=== PATIENT | female | born 1980 | race Caucasian/White ===

== ENCOUNTER 2017-10-09 10:16 | Emergency (ER) | payer OTHER ==
[~2017-10-09] VITALS: Ht 152.4 cm; Wt 104.8 kg
[~2017-10-09 10:16] MED LIST: BUSPIRONE HCL10 MG; CITRANATAL B-C1 EAC1; DOLOGEN CAPLET1 TAB; MEDROLPACK PO; MUCINEX1200 MG/BO PO; PROVENTIL3 ML/2.5 M IH; SEPTRA DS TABLE1 TAB; SINGULAIR10 MG; TOPROL XL50 MG; ZITHROMAX500 MG PO
[2017-10-09] MEDS ORDERED: VALSARTAN80 MG (10:35)
== END 2017-10-09 14:03 | disposition home or self-care (01) ==
LOC: ER 10:16
DX: B34.9 Viral infection, unspecified (principal)

== ENCOUNTER → 2017-11-22 | Outpatient (CLI) | payer OTHER ==
[~2017-11-22] MED LIST changes: +VALSARTAN80 MG
== END | disposition home or self-care (01) ==
LOC: PPHC 11:52
DX: B34.9 Viral infection, unspecified (principal)

== ENCOUNTER 2018-06-24 23:54 | Inpatient (IN) | payer OTHER ==
[~2018-06-24] VITALS: Ht 152.4 cm; Wt 100.7 kg
== END 2018-06-30 11:49 | DRG 832 ==
LOC: ER 23:54 → SEC-K 06-25 11:39 → OB/GYN 06-25 11:39
PROC: 4A1HXCZ Monitoring of Products of Conception, Cardiac Rate, External Approach (ICD-10-PCS; principal; 2018-06-25)
PROC: 8E0ZXY6 Isolation (ICD-10-PCS; 2018-06-25)
PROC: 3E0F7GC Introduction of Other Therapeutic Substance into Respiratory Tract, Via Natural or Artificial Opening (ICD-10-PCS; 2018-06-25)
PROC: 4A033R1 Measurement of Arterial Saturation, Peripheral, Percutaneous Approach (ICD-10-PCS; 2018-06-25)
DX: O99.513 Diseases of the respiratory system complicating pregnancy, third trimester (principal); J45.902 Unspecified asthma with status asthmaticus; J09.X2 Influenza due to identified novel influenza A virus with other respiratory manifestations; O24.410 Gestational diabetes mellitus in pregnancy, diet controlled; O13.3 Gestational [pregnancy-induced] hypertension without significant proteinuria, third trimester; Z34.83 Encounter for supervision of other normal pregnancy, third trimester

== ENCOUNTER 2018-07-25 11:53 | Outpatient (CLI) | payer OTHER ==
[2018-07-25] MEDS ORDERED: ALDOMET250 MG PO (12:09)
== END 2018-07-25 15:02 | disposition still patient (30) ==
LOC: OBS/DEL 11:53
DX: O21.8 Other vomiting complicating pregnancy (principal); Z34.83 Encounter for supervision of other normal pregnancy, third trimester

== ENCOUNTER 2018-07-25 12:35 | Emergency (ER) | payer OTHER ==
[~2018-07-25] VITALS: Ht 152.4 cm; Wt 99.3 kg
[~2018-07-25 12:35] MED LIST changes: +ALDOMET250 MG PO
== END 2018-07-25 16:22 | disposition home or self-care (01) ==
LOC: ER 12:35
DX: O26.893 Other specified pregnancy related conditions, third trimester (principal); K29.70 Gastritis, unspecified, without bleeding; Z34.03 Encounter for supervision of normal first pregnancy, third trimester

== ENCOUNTER 2018-08-12 05:09 | Inpatient (IN) | payer OTHER ==
[~2018-08-12] VITALS: Ht 152.4 cm; Wt 2.7 kg
== END 2018-08-15 15:03 | DRG 788 ==
LOC: OB/GYN 05:09 → LDR 05:09 → O/R 08:38 → OB/GYN 11:11
PROVIDERS: ADMIT Specialist
PROC: 4A1HXCZ Monitoring of Products of Conception, Cardiac Rate, External Approach (ICD-10-PCS; 2018-08-12)
PROC: 10D00Z1 Extraction of Products of Conception, Low, Open Approach (ICD-10-PCS; principal; 2018-08-12 07:00)
DX: O34.211 Maternal care for low transverse scar from previous cesarean delivery (principal); O75.82 Onset (spontaneous) of labor after 37 completed weeks of gestation but before 39 completed weeks gestation, with delivery by (planned) cesarean section; Z3A.38 38 weeks gestation of pregnancy; Z37.0 Single live birth